=== PATIENT | male | born 1995 | race Caucasian/White ===

== ENCOUNTER 2017-02-08 03:50 | Emergency (ER) | payer BC, MEDICAID ==
[~2017-02-08] VITALS: Ht 170.2 cm; Wt 80.5 kg
[2017-02-08 03:53] VITALS: Ht 170.2 cm; Wt 80.5 kg
[2017-02-08] MEDS ORDERED: DIPHTH/TET/ACEL PERTUSS (ADULT) 0.5 ML VIAL IM* ONE (04:30)
--- NOTE | 2017-02-08 04:31 | ERD ---
ER Documentation Chief Complaint Date/Time DATE: 02/08/17 TIME: 04:26 Chief Complaint laceration right hand HPI 22-year-old male presents here in emergency department for a hand laceration wound after falling off a skateboard and landing on the ground. Patient acquired a laceration wound, complains of pain, sharp pain, 6/10 scale, is worse upon touching the area. Patient is able to move the joints of the right hand without any restriction. Patient denies any fever or chills. ROS All systems reviewed and are negative except as per history of present illness. Allergies Allergies: Coded Allergies: No Known Allergy (Unverified , 02/08/17) PMhx/Soc Medical and Surgical Hx: pt denies Medical Hx, pt denies Surgical Hx Hx Alcohol Use: No Hx Substance Use: No Hx Tobacco Use: No Smoking Status: Never smoker FmHx Family History: No coronary disease, No diabetes, No other Physical Exam Vitals Vital Signs Date Time Temp Pulse Resp B/P Pulse Ox O2 Delivery O2 Flow Rate FiO2 02/08/17 03:53 97.8 99 20 134/70 100 Physical Exam GENERAL: The patient is well developed and appropriate for usual state of health, in no apparent distress. CHEST: Clear to auscultation bilaterally. There are no rales, wheezes or rhonchi. HEART: Regular rate and rhythm. No murmurs, clicks, rubs or gallops. No S3 or S4. ABDOMEN: Soft, nontender and nondistended. Good bowel sounds. No rebound or guarding. No gross peritonitis. No gross organomegaly or masses. No Padilla sign or McBurney point tenderness. BACK: No midline or flank tenderness. EXTREMITIES: Equal pulses bilaterally. There is no peripheral clubbing, cyanosis or edema. No focal swelling or erythema. Full range of motion. Grossly neurovascularly intact. NEURO: Alert and oriented. Cranial nerves 2-12 intact. Motor strength in all 4 extremities with 5/5 strength. Sensation grossly intact. Normal speech and gait. SKIN: Noted 2 centimeter right hand laceration wound, no tendon involvement. There is no apparent rash or petechia. The skin is warm and dry. HEMATOLOGIC AND LYMPHATIC: There is no evidence of excessive bruising or lymphedema. No gross cervical, axillary, or inguinal lymphadenopathy. Results 24 hrs Current Medications Medications (Trade) Dose Ordered Sig/Yissel Route PRN Reason Start Time Stop Time Status Last Admin Dose Admin Diphtheria/ Tetanus/Acell Pertussis (Adacel) 0.5 ml ONCE ONCE IM* 02/08/17 04:30 02/08/17 04:31 DC 02/08/17 04:21 Lidocaine (Xylocaine 2% (Mdv) 20 ml) 2 ml ONCE ONCE INJ 02/08/17 05:30 02/08/17 05:31 DC Tdap was given to prevent tetanus. Patient tolerated medication well. PROCEDURE: XR Hand. CLINICAL INDICATION: Right hand pain following injury. TECHNIQUE: Three views of the right hand were obtained. COMPARISON: No prior studies are available for comparison. FINDINGS: The osseous structures demonstrate normal alignment and mineralization. No acute fracture or dislocation is seen. The joint spaces are well preserved. No significant soft tissue abnormalities are appreciated. IMPRESSION: 1. Unremarkable right hand x-ray series. 2. No acute fracture or dislocation is seen. RPTAT: HH .Chetna Ivan MD, MD Date Time Electronically viewed and signed by .Chetna Ivan MD, MD on 02/08/2017 05 :12 .G/ CC: CEM ALLEN PARAEDUCATOR Procedures/MDM Procedure Note: After obtaining informed consent, the wound was irrigated with 250 ml of normal saline and cleaned with diluted betadine. Using aseptic technique, 3 ml of 2% lidocaine was injected on the subcutaneous tissue of the laceration wound for anesthetic. After the anesthetic, the wound was approximated using 2 interrupted sutures of Prolene. After the procedure, the wound was well approximated. Patient tolerated procedure well. Bacitracin was applied on the area and a dry dressing. Medical Decision Making: Patient's pain is most likely consistent with a contusion and the laceration wound. There is no suspicion for neurovascular compromise. Patient has intact sensation and circulation of the affected extremity. There is low suspicion for septic arthritis. Patient does not have any fever. Radiology exams of the affected area does not show any fracture or dislocation. Disposition: Home. Patient is given prescription for ibuprofen for pain, Keflex to prevent infection. Patient was advised to elevate the affected area and apply ice on affected area. Patient was advised that if symptoms are worse, numbness, tingling, high fever, unable to move joint, worsening symptoms, to return to emergency department immediately. Otherwise, patient is advised to follow up with the primary care doctor 2 days for wound check, suture removal in 7-10 days Departure Diagnosis: Primary Impression: Hand laceration Encounter type: initial encounter Foreign body presence: without foreign body Laterality: right Qualified Code: S61.411A - Laceration of right hand without foreign body, initial encounter Condition: Stable Patient Instructions: Laceration, Hand Additional Instructions: Patient is given prescription for ibuprofen for pain, Keflex to prevent infection. Patient was advised to elevate the affected area and apply ice on affected area. Patient was advised that if symptoms are worse, numbness, tingling, high fever, unable to move joint, worsening symptoms, to return to emergency department immediately. Otherwise, patient is advised to follow up with the primary care doctor 2 days for wound check, suture removal in 7-10 days CEM ALLEN NP Feb 08, 2017 04:31
--- NOTE | 2017-02-08 05:12 | RADRPT ---
PROCEDURE: XR Hand. CLINICAL INDICATION: Right hand pain following injury. TECHNIQUE: Three views of the right hand were obtained. COMPARISON: No prior studies are available for comparison. FINDINGS: The osseous structures demonstrate normal alignment and mineralization. No acute fracture or disloc ation is seen. The joint spaces are well preserved. No significant soft tissue abnormalities are a ppreciated. IMPRESSION: 1. Unremarkable right hand x-ray series. 2. No acute fracture or dislocation is seen. RPTAT: HH .Chetna Ivan MD, MD Date Time Electronically viewed and signed by .Chetna Ivan MD, on 02/08/2017 05:12 .G/
[2017-02-08] MEDS ORDERED: LIDOCAINE 2% (MDV) 20 ML INJ INJ ONE (05:30)
[2017-02-08] MEDS ORDERED: IBUP-1542 PO (05:39)
[2017-02-08] MEDS ORDERED: CEPH-443 PO (05:39)
== END 2017-02-08 05:48 | disposition home or self-care (01) ==
LOC: FTE 03:50 → EDSEX 03:50 → FTE 05:48
DX: S61.411A Laceration without foreign body of right hand, initial encounter (principal); V00.131A Fall from skateboard, initial encounter; Y92.9 Unspecified place or not applicable; Z23 Encounter for immunization
CPT/HCPCS: 90471; 90715